=== PATIENT | male | born 1995 | race American Indian/Alaskan Native ===

== ENCOUNTER 2016-11-16 23:22 | Emergency (ER) | payer OTHER ==
[2016-11-16 23:28] VITALS: BMI 25.0
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
[2016-11-16 23:36] VITALS: BP 124/79; PULSE 75; RESP 14; TEMP 98.2; O2SAT 99
== END 2016-11-17 | disposition home or self-care (01) ==
LOC: ED 23:22
DX: M54.5 Low back pain (principal)

== ENCOUNTER 2016-12-12 12:51 | Emergency (ER) | payer OTHER ==
[2016-12-12 13:02] VITALS: BMI 22.2
[2016-12-12 13:03] VITALS: TEMP 99.5
--- NOTE | 2016-12-12 13:10 | ED PDOC ---
Arrival/HPI - General Historian: Patient - General Chief Complaint: ENT Problem Time Seen by Provider: 12/12/16 13:06 - History of Present Illness Narrative History of Present Illness (Text): 12/12/16 13:07 21yo male with no PMhx who present with complaint of sore throat since this morning. 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 Denies fever , chills, abdominal pain, drooling, hoarseness, any other complaint. (Delores Pink) Past Medical History - Provider Review Nursing Documentation Reviewed: Yes - Travel History If Yes, travel location?: [place] - Psychiatric Hx Substance Use: No - Surgical History Other/Comment: right arm bicep surgery 2 years ago, left shoulder - Anesthesia Hx Anesthesia: Yes Hx Anesthesia Reactions: No Hx Malignant Hyperthermia: No Family/Social History - Physician Review Nursing Documentation Reviewed: Yes Family/Social History: Unknown Family HX Smoking Status: Never Smoked Hx Alcohol Use: No Hx Substance Use: No Allergies/Home Meds Allergies/Adverse Reactions: Allergies No Known Allergies Allergy (Verified 12/12/16 13:01) Review of Systems - Physician Review All systems were reviewed & negative as marked: Yes - Review of Systems Constitutional: Normal Eyes: Normal ENT: Sore Throat Respiratory: Normal Cardiovascular: Normal Gastrointestinal: Normal Genitourinary Male: Normal Musculoskeletal: Normal Skin: Normal Neurological: Normal Endocrine: Normal Hemo/Lymphatic: Normal Psychiatric: Normal Physical Exam Vital Signs Reviewed: Yes Temperature: Afebrile Blood Pressure: Normal Pulse: Regular Respiratory Rate: Normal Appearance: Positive for: Well-Appearing, Non-Toxic, Comfortable Pain Distress: None Mental Status: Positive for: Alert and Oriented X 3 - Systems Exam Head: Present: Atraumatic, Normocephalic Pupils: Present: PERRL Extroacular Muscles: Present: EOMI Conjunctiva: Present: Normal Mouth: Present: Moist Mucous Membranes Pharnyx: Present: ERYTHEMA, EXUDATE, TONSILS ENLARGED, Peritonsilar Swelling. No: Uvular Deviation, Muffled/Hoarse Voice, Strider, Soft Palate/Uvular Edema Neck: Present: Normal Range of Motion Respiratory/Chest: Present: Clear to Auscultation, Good Air Exchange. No: Respiratory Distress, Accessory Muscle Use Cardiovascular: Present: Regular Rate and Rhythm, Normal S1, S2. No: Murmurs Abdomen: Present: Normal Bowel Sounds. No: Tenderness, Distention, Peritoneal Signs Back: Present: Normal Inspection Upper Extremity: Present: Normal Inspection. No: Cyanosis, Edema Lower Extremity: Present: Normal Inspection. No: Edema Neurological: Present: GCS=15, CN II-XII Intact, Speech Normal Skin: Present: Warm, Dry, Normal Color. No: Rashes Psychiatric: Present: Alert, Oriented x 3, Normal Insight, Normal Concentration Vital Signs Temp Pulse Resp BP Pulse Ox 12/12/16 13:02 99.5 F 96 H 16 132/84 99 Medical Decision Making ED Course and Treatment: I was available for consultation during PA evaluation. The chart was reviewed by me, and I agree with disposition. The documented history was done by the physician money market clerk. The documented physical exam was done by the physician money market clerk. The documented procedures were done by the physician money market clerk. (Michel Quispe) - Medication Orders Current Medication Orders: Discontinued Medications Dexamethasone (Decadron Inj) 10 mg IM STAT STA Stop: 12/12/16 13:07 Last Admin: 12/12/16 13:30 Dose: 10 MG IM Administration Charges Document 12/12/16 13:30 EAR (Rec: 12/12/16 13:30 EAR [facility] [place]) Injection Site MAR Injection Site Left Deltoid Charges for Administration # of IM Administrations 1 Lidocaine HCl (Lidocaine 2% Viscous) 10 ml PO ONCE STA Stop: 12/12/16 13:07 Last Admin: 12/12/16 13:29 Dose: 10 ML Penicillin V Potassium (Penicillin Vk Tab) 500 mg PO STAT STA PRN Reason: Protocol Stop: 12/12/16 13:07 Last Admin: 12/12/16 13:29 Dose: 500 MG Disposition/Present on Arrival - Present on Arrival Any Indicators Present on Arrival: No History of DVT/PE: No History of Uncontrolled Diabetes: No Urinary Catheter: No History of Decub. Ulcer: No History Surgical Site Infection Following: None - Disposition Have Diagnosis and Disposition been Completed?: Yes Disposition Time: 13:10 Patient Plan: Discharge - Disposition Diagnosis: Acute tonsillitis Discharge Instructions (ExitCare): Tonsillitis (ED) Additional Instructions: Take medication as directed Follow up with your Doctor Return to ED for any new or worsening symptoms Prescriptions: Penicillin VK [Pen-Vee K] 500 mg PO BID #14 tab Referrals: [facility] at [facility] [Outside] - Follow up with primary Forms: WORK NOTE
[2016-12-12 14:05] VITALS: BP 128/77; PULSE 78; RESP 18; O2SAT 98
== END 2016-12-12 14:07 | disposition home or self-care (01) ==
LOC: ED 12:51
DX: J03.90 Acute tonsillitis, unspecified (principal)
CPT/HCPCS: 96372; 99283; J1100